=== PATIENT | male | born 1960 | race Caucasian/White ===

== ENCOUNTER 2018-07-09 11:41 | Emergency (ER) | payer BC ==
[2018-07-09 12:17] VITALS: BP 140/75
--- NOTE | 2018-07-09 13:13 | EDM.PDOC ---
ED HPI GENERAL MEDICAL PROBLEM - General Chief Complaint: Laceration Stated Complaint: LACERATION TO FINGER LT Time Seen by Provider: 07/09/18 12:00 Source of Information: Reports: Patient History Limitations: Reports: No Limitations - History of Present Illness INITIAL COMMENTS - FREE TEXT/NARRATIVE: Patient accidentally cut his left dorsal index finger while making sausage. Tetanus up-to-date Left index finger Pain Score (Numeric/FACES): 3 - Related Data Allergies Allergy/AdvReac Type Severity Reaction Status Date / Time hydrocodone Allergy Syncope Verified 07/13/15 11:20 warfarin [From Coumadin] Allergy Other Verified 07/09/18 12:05 Home Meds: Home Meds Ibuprofen [Advil] 800 mg PO TID 08/10/13 [History] Diclofenac Sodium [Voltaren] 75 mg PO DAILY 07/09/18 [History] Omeprazole 20 mg PO DAILY 07/09/18 [History] Past Medical History Gastrointestinal History: Reports: GERD Social & Family History - Family History Family Medical History: Noncontributory - Tobacco Use Smoking Status *Q: Never Smoker - Caffeine Use Caffeine Use: Reports: Coffee - Recreational Drug Use Recreational Drug Use: No ED ROS GENERAL - Review of Systems Review Of Systems: ROS reveals no pertinent complaints other than HPI. ED EXAM, SKIN/RASH Exam: See Below Text/Narrative:: Pleasant young man mild discomfort left index radial dorsal side finger 3 cm diameter With proximal face intact and sensation intact Exam Limited By: No Limitations General Appearance: Alert, WD/WN Eye Exam: Bilateral Eye: Normal Inspection Ears: Normal External Exam Nose: Normal Inspection Throat/Mouth: Normal Inspection Head: Atraumatic Neck: Normal Inspection Respiratory/Chest: No Respiratory Distress, Lungs Clear Cardiovascular: Normal Peripheral Pulses, Regular Rate, Rhythm, No Edema, No Gallop, No JVD, No Murmur, No Rub Peripheral Pulses: 1+: Radial (L), Radial (R) GI/Abdominal: Normal Bowel Sounds (Male) Exam: No Hernia, Deferred Rectal (Males) Exam: Deferred Back Exam: Normal Inspection Extremities: Normal Inspection, Normal Range of Motion, Non-Tender, No Pedal Edema, Normal Capillary Refill Neurological: Alert, Oriented, CN II-XII Intact, Normal Cognition, Normal Gait, No Motor/Sensory Deficits Psychiatric: Normal Affect, Normal Mood Location, Skin: Other (Left index finger) Associated features: Warmth Lymphatic: No Adenopathy ED SKIN PROCEDURES - Additional/Other Procedure(s) Other (Free Text) Procedure(s): Wound was cleansed under the sink with surgical scrub brush for 5 minutes and then injected with lidocaine epi 1% and 5 stitches of 4-0 Ethilon placed no complications. Course - Vital Signs Last Recorded V/S: Last Vital Signs Temp 36.7 C 07/09/18 11:55 Pulse 63 07/09/18 11:55 Resp 18 07/09/18 11:55 BP 140/75 07/09/18 11:55 Pulse Ox 98 07/09/18 11:55 Departure - Departure Time of Disposition: 12:30 (Left index finger laceration repaired) Disposition: Home, Self-Care 01 Condition: Good Clinical Impression: Laceration - Discharge Information *PRESCRIPTION DRUG MONITORING PROGRAM REVIEWED*: Not Applicable *COPY OF PRESCRIPTION DRUG MONITORING REPORT IN PATIENT CLEM: Not Applicable Instructions: Laceration Care, Adult Referrals: Gabriel Hernandez PA [Primary Care Provider] - Forms: ED Department Discharge Additional Instructions: left index finger laceration sutures stay in for 10-14 days. Keep clean wash daily apply bacitracin daily. Follow-up with immediately if any sign of infection: Redness, swelling, pain , or red streaks up your finger. For pain he was 1000 mg of Tylenol 600 mg ibuprofen every 6 hours as needed
== END 2018-07-09 12:30 | disposition home or self-care (01) ==
LOC: FB.ED 11:41
DX: S61.211A Laceration without foreign body of left index finger without damage to nail, initial encounter (principal); W45.8XXA Other foreign body or object entering through skin, initial encounter; K21.9 Gastro-esophageal reflux disease without esophagitis; Y93.89 Activity, other specified; Z79.899 Other long term (current) drug therapy; Z88.5 Allergy status to narcotic agent; Z88.9 Allergy status to unspecified drugs, medicaments and biological substances
CPT/HCPCS: 12001; 12002; 99283